=== PATIENT | male | born 1970 | race Caucasian/White ===

== ENCOUNTER 2019-12-25 07:32 | Day surgery (SDC) | payer BC ==
--- NOTE | 2019-12-23 13:13 | HP ---
DATE OF SURGERY: 12/25/2019 ANTICIPATED PROCEDURE: Lesion left lower back. HISTORY OF PRESENT ILLNESS: The patient has enlarging painful subcutaneous back lesion. PAST MEDICAL HISTORY: ALLERGIES: PENICILLIN. MEDICATIONS: Claritin, Singulair, Simvastatin. PAST SURGICAL HISTORY: Left knee. SOCIAL HISTORY: Positive tobacco. Negative ETOH. FAMILY HISTORY: Negative. REVIEW OF SYSTEMS: Allergies, hypertension. PHYSICAL EXAMINATION: VITAL SIGNS: Normal. CHEST: Clear. COR: Regular. IMPRESSION: Mass left subcutaneous 3 x 5 cm. PLAN: Excision.
[~2019-12-25 07:32] MED LIST: Lactated Ringers 1,000 ML IV ONE; XYLOCAINE 1% HCL 20 ML MDV ONE
[2019-12-25] MEDS ORDERED: Lactated Ringers 1,000 ML IV SCH (08:00)
[2019-12-25] MEDS ORDERED: DIPRIVAN 200 MG/20 ML IV ONE (09:20)
[2019-12-25] MEDS ORDERED: SUBLIMAZE 100 MCG/2 ML ONE (09:20)
[2019-12-25] MEDS ORDERED: Versed 2 MG/2 ML Injection ONE (09:20)
[2019-12-25] MEDS ORDERED: CLINDAMYCIN-D5W 900 MG/50 ML*** 900 MG/50 ML BAG IV ONE (09:22)
[2019-12-25 11:06] VITALS: BP 138/82; PULSE 58; O2SAT 99
--- NOTE | 2019-12-26 08:46 | OP ---
SURGERY DATE/TIME: 12/25/2019 0920 PREOPERATIVE DIAGNOSIS: A 6 cm posterior lumbar back mass. POSTOPERATIVE DIAGNOSIS: A 6 cm posterior lumbar back mass. PROCEDURE: Excision of a deep lipoma 6 cm with closure. SURGEON: Carlos Enrique Duffy M.D. ANESTHESIA: MAC. COMPLICATIONS: None. CONDITION: Stable. INDICATION: A patient with above stated condition. DESCRIPTION OF PROCEDURE: Taken to surgery. Right lateral decubitus position. MAC sedation. Slight curvilinear incision along the skin lines. The lesion was deep. It was 6 cm. It was taken out completely. It was closed with 3-0 Vicryl, 4-0 Vicryl and Steri-Strips. The patient tolerated the procedure satisfactorily.
== END 2019-12-25 11:15 | disposition home or self-care (01) ==
LOC: SDC 07:32
PROVIDERS: ATTEND Surgery
DX: D17.1 Benign lipomatous neoplasm of skin and subcutaneous tissue of trunk (principal)
CPT/HCPCS: J2250; J2704; J3010

== ENCOUNTER 2021-09-19 10:43 | Day surgery (SDC) | payer BC ==
[2021-09-19] MEDS ORDERED: Levofloxacin 500MG/100ML D5W 500 MG/100 ML BAG IV SCH (13:15)
[2021-09-19] MEDS ORDERED: CLINDAMYCIN-D5W 900 MG/50 ML*** 900 MG/50 ML BAG IV SCH (13:30)
[2021-09-19] MEDS ORDERED: Lactated Ringers 1,000 ML IV SCH (13:30)
[2021-09-19 14:15] LABS: Hematocrit 42.8 % (42-50); Hemoglobin 13.6 gm/dl (12.5-18.0); Mean Cell Volume 89.2 fl (78-100); Mean Corpuscular Hemoglobin 28.3 pg (26-32); Mean Corpuscular Hgb Concent. 31.8 g/dl (32-36); Mean Platelet Volume 9.4 fl (7.5-11.0); Platelet Count 264 K/mm3 (150-450); Red Cell Distribution Width 14.7 % (11.5-14.0); White Blood Count 6.8 K/mm3 (4.0-10.5)
[2021-09-19 14:22] LABS: ALBUMIN 4.1 g/dL (3.5-5.0); ALKALINE PHOSPHATASE 64 U/L (38-126); ANION GAP 11.3 MEQ/L (5-15); BLOOD UREA NITROGEN 8 mg/dL (9-20); CHLORIDE 102 mmol/L (98-107); Calcium 9.1 mg/dL (8.4-10.2); Carbon Dioxide 27 mmol/L (22-30); Creatinine 1 0.67 mg/dL (0.66-1.25); EST GLOMERULAR FILTRATION RATE > 60.0 ML/MIN; Glucose 96 mg/dL (74-106); Potassium 3.9 mmol/L (3.5-5.1); SGOT/AST 19 U/L (17-59); SGPT/ALT 19 U/L (0-50); SODIUM 136 mmol/L (137-145); Total Protein 6.6 g/dL (6.3-8.2)
[2021-09-19] MEDS ORDERED: Versed 2 MG/2 ML Injection ONE (14:39)
[2021-09-19] MEDS ORDERED: Quelicin Fliptop 200 MG/10 ML ONE (14:39)
[2021-09-19] MEDS ORDERED: DIPRIVAN 200 MG/20 ML IV ONE (14:39)
[2021-09-19] MEDS ORDERED: SUBLIMAZE 250 MCG/5 ML ONE (14:39)
[2021-09-19] MEDS ORDERED: Zemuron 100 MG/10 ML ONE (14:43)
[2021-09-19] MEDS ORDERED: Lactated Ringers 1,000 ML IV ONE (15:11)
[2021-09-19] MEDS ORDERED: EXPAREL 133 MG/10 ML VIAL IJ ONE (16:36)
[2021-09-19] MEDS ORDERED: Ephedrine Sulfate 50 MG/ML ONE (16:58)
[2021-09-19] MEDS ORDERED: Triple Antibiotic Ointment ONE (17:02)
[2021-09-19] MEDS ORDERED: BRIDION 200MG/2ML IV ONE (17:06)
[2021-09-19] MEDS ORDERED: SUBLIMAZE 100 MCG/2 ML ONE (17:39)
[2021-09-19] MEDS ORDERED: Hydromorphone 1 mg/ml Injection ONE (17:39)
[2021-09-19] MEDS ORDERED: Zofran 4 MG/2 ML VIAL ONE (18:46)
[2021-09-19] MEDS ORDERED: Zofran 4 MG/2 ML VIAL IV STA (18:49)
[2021-09-19 19:28] VITALS: BP 129/88; PULSE 79; O2SAT 97
--- NOTE | 2021-09-29 10:03 | OP ---
PROCEDURE DATE/TIME: 09/19/2021 1613 PREOPERATIVE DIAGNOSIS: Thrombosed external hemorrhoids and severe hemorrhoidal disease. POSTOPERATIVE DIAGNOSIS: Thrombosed external hemorrhoids and severe hemorrhoidal disease. PROCEDURES: 1) Rectal exam under anesthesia. 2) Excision thrombosed external hemorrhoids. PROCEDURE PERFORMED BY: Claudia Duffy M.D. COMPLICATIONS: None. ESTIMATED BLOOD LOSS: Minimal. ANESTHESIA: General. SPECIMEN: Hemorrhoidal tissue. HISTORY: This is a gentleman who presented acutely in my office with a thrombosed external hemorrhoid causing him significant pain and discomfort. Risks, benefits, alternatives regarding operative resection were discussed with him in detail as well as conservative measures. He has elected for surgery. He would like to undergo the procedure today. A full H&P was completed. He was also re-evaluated in the preoperative area. DESCRIPTION OF PROCEDURE: He was then taken back to the operative suite. Anesthesia induced. Prepped and draped in the usual sterile fashion in lithotomy position. A complete time out performed. I first did a rectal inspection and then a digital exam. The patient has obvious severe hemorrhoidal disease. He has multiple enlarged hemorrhoid columns most specifically both posterior columns as well as a left anterior column and just slightly anterior column also has an acutely thrombosed hemorrhoid. At this time, we then did a digital inspection and placed our Hill retractor. The patient does have some internal hemorrhoidal disease as well this is not as severe as his external disease but overall his hemorrhoidal disease also in that area is quite significant. There are no other thrombosed hemorrhoids. There are no masses or other findings of concern. We then turned our attention to the thrombosed hemorrhoidal site for our excision. The perianal skin was then grasped, incised and we carefully dissected free the hemorrhoidal vasculature off of the underlying tissue taking great care to preserve the muscle as we dissected free the hemorrhoids. We then were able to place a clamp excise the remainder of the hemorrhoid including the entire fundal portion and then sutured this with a 3-0 chromic suture and then a 4-0 chromic running suture in the perianal skin to allow this to lay as flat as possible. There is no narrowing of the anal canal and this is nice and hemostatic. The entire external hemorrhoid at this site was removed sparing the skin appropriately. The patient had tolerated this procedure well. There are no immediate complications. I did discuss with him preoperatively the importance of bowel regimen and he understands. I have also discussed the findings as well as this with his family. He has been given a prescription for pain medication and for anxiety as well as a bowel regimen and he will be following up with me closely as well in office. He understands all of his discharge instructions.
== END 2021-09-19 19:45 | disposition home or self-care (01) ==
LOC: SDC 10:43
PROVIDERS: ATTEND Surgery
DX: K64.5 Perianal venous thrombosis (principal); Z79.899 Other long term (current) drug therapy
CPT/HCPCS: 36415; 80053; 85027; 88304; J0330; J1170; J1956; J2250; J2405; J2704; J3010; A9270-GY

== ENCOUNTER 2022-11-10 06:33 | Day surgery (SDC) | payer BC ==
[2022-11-10] MEDS ORDERED: Lactated Ringers 1,000 ML IV SCH (07:00)
[2022-11-10] MEDS ORDERED: Xylocaine-Mpf 2% 5 Ml Vial ONE (07:54)
[2022-11-10] MEDS ORDERED: DIPRIVAN 200 MG/20 ML IV ONE ×2 (07:55→08:06)
--- NOTE | 2022-11-10 08:26 | OP ---
SURGERY DATE/TIME: 11/10/2022 0800 PREOPERATIVE DIAGNOSIS: Screening exam. POSTOPERATIVE DIAGNOSIS: Mild sigmoid diverticulosis otherwise normal colon. PROCEDURE: Colonoscopy. SURGEON: Dr. Bryant. ANESTHESIA: MAC. Medications given by anesthesia department. HISTORY: The patient is a 52-year-old white male presents now for screening colonoscopy. The patient was appraised of the risks of the procedure including the risk of perforation, phlebitis, untoward reaction to medication, bleeding and missed lesions. The patient verbalized his understanding and desired to have the procedure performed. DESCRIPTION OF PROCEDURE: The patient was given the medications by the anesthesia department. He had continuous pulse oximetry, ECG monitoring and intermittent blood pressure monitoring during the examination. He was placed in the left lateral decubitus position. Digital rectal examination was performed and revealed normal anal sphincter tone, no masses and normal prostate. The flexible Olympus pediatric colonoscope was used to intubate the rectum. A view of the colon was developed sequentially to the cecum. Upon insertion and withdrawal, including a retroflex view in the rectum was noted to be mild sigmoid diverticulosis otherwise no other mucosal lesions were encountered. The scope was removed from the patient who tolerated the procedure well and was sent back to OP recovery in good condition. The prep was noted to be fair to good.
[2022-11-10 08:53] VITALS: BP 145/88; PULSE 65; O2SAT 98
== END 2022-11-10 09:05 | disposition home or self-care (01) ==
LOC: SDC 06:33
PROVIDERS: ATTEND Family Medicine
DX: Z12.11 Encounter for screening for malignant neoplasm of colon (principal); K57.30 Diverticulosis of large intestine without perforation or abscess without bleeding
CPT/HCPCS: J2704

== ENCOUNTER 2024-09-14 05:28 | Emergency (ER) | payer BC ==
[2024-09-14] MEDS ORDERED: NORCO 10-325 MG PO ONE (05:29)
[2024-09-14 05:45] VITALS: TEMP 97
--- NOTE | 2024-09-14 05:47 | ERPHSYRPT ---
- History of Present Illness Historian: patient, family Exam Limitations: no limitations Patient Subjective Stated Complaint: pt states that he began to have stomach pain before bed tonight Triage Nursing Assessment: pt ambulated into the er; pt is axo x4; c/o abd pain; pt states 10/10 pain to epigastric region; abd round, large, tender; hyperactive bowel sounds in all quads; mucus membranes pink and moist; pt denies N/V/D; skin PDW; no respiratory distress present; hypertensive Timing/Duration: today Activities at Onset: none Quality: cramping, sharpness Abdominal Pain Onset Location: generalized abdomen Pain Radiation: epigastric, periumbilical Severity of Pain-Max: moderate Severity of Pain-Current: moderate Modifying Factors: Improves With: nothing Associated Symptoms: denies symptoms Previous symptoms: no prior history Hx Tetanus, Diphtheria Vaccination/Date Given: No Hx Influenza Vaccination/Date Given: No Hx Pneumococcal Vaccination/Date Given: No Immunizations Up to Date: No <OSMAN FRAZIER - Last Filed: 09/14/24 07:00> <CARTER GENTILE - Last Filed: 09/14/24 07:42> - History of Present Illness Time Seen by Provider: 09/14/24 05:45 Physician History: Pt had onset of general abdominal pain at around midnight - none like this ever before. No hx of trauma or abdominal surgeries. No hx ht dx and has no CP or SObreath with this. No N.v or diarrhea. Discussed with pt and available family risks and benefits of testing/Tx including CBC, CMP, EKG, Trop, Lactate, UA, Amylase, Lipase, CT abdomen , pain med, and they wish to proceed so these are ordered. family is present in ER as independent source for Hx. Results discussed with pt and available family. Pt now reports hx of diverticulitis and some milder symptoms LLQ earlier last week. Pt and add that he often has had blood found in UA in past and this may be a chronic finding - I advised them still to f/u PMDs for further w/u of this even if unrelated to his pain today. (OSMAN FRAZIER) Allergies/Adverse Reactions: mushroom Allergy (Severe, Verified 09/14/24 05:33) Anaphylactic Reaction Penicillins Allergy (Unknown, Verified 09/14/24 05:33) Hives Home Medications: Loratadine 10 mg [Claritin 10 mg] 10 mg PO DAILY 12/25/19 [History] Losartan Potassium [Cozaar] 25 mg PO DAILY 12/25/19 [History] Montelukast Sodium 10 mg [Singulair 10 MG] 10 mg PO DAILY 12/25/19 [History] Valacyclovir HCl [Valtrex] 500 mg PO DAILY 12/25/19 [History] Pravastatin Sodium 20 mg PO DAILY 10/20/22 [History] Travel Risk - International Travel Have you traveled outside of the country in past 3 weeks: No - Emerging Infectious Disease Are you exhibiting symptoms associated with any current EIDs: Yes Symptoms: Abdominal Pain <OSMAN FRAZIER - Last Filed: 09/14/24 07:00> - Review of Systems Constitutional: No Fever, No Chills Eyes: No Symptoms Ears, Nose, & Throat: No Symptoms Respiratory: No Cough, No Dyspnea Cardiac: No Chest Pain, No Edema, No Syncope Abdominal/Gastrointestinal: Abdominal Pain, No Nausea, No Vomiting, No Diarrhea Genitourinary Symptoms: No Dysuria Musculoskeletal: No Back Pain, No Neck Pain, No Fall, No Injury Skin: No Symptoms, No Rash Neurological: No Symptoms, No Dizziness, No Focal Weakness, No Sensory Changes Psychological: No Symptoms Endocrine: No Symptoms Hematologic/Lymphatic: No Symptoms Immunological/Allergic: No Symptoms All Other Systems: Reviewed and Negative <OSMAN FRAZIER - Last Filed: 09/14/24 07:00> - Past Medical History Pertinent Past Medical History: Yes Neurological History: No Pertinent History ENT History: No Pertinent History Cardiac History: High Cholesterol, Hypertension Respiratory History: No Pertinent History Endocrine Medical History: No Pertinent History Musculoskeletal History: Other GI Medical History: GERD History: No Pertinent History Psycho-Social History: No Pertinent History Male Reproductive Disorders: No Pertinent History Other Medical History: 2010 RIGHT KNEE ARTHROSCOPY FOR MENISCUS REPAIR. 1993 LEFT KNEE ARHTROSCOPY FOR DEBRIDEMENT - Past Surgical History Past Surgical History: Yes Neuro Surgical History: No Pertinent History Cardiac: No Pertinent History Respiratory: No Pertinent History Gastrointestinal: Hemorrhoidectomy Genitourinary: No Pertinent History Musculoskeletal: Other Male Surgical History: No Pertinent History Other Surgical History: left knee surgery 2010. right knee scope 30 years ago - Social History Smoking Status: Never smoker Exposure to second hand smoke: No Drug Use: none - Social Determinants of Health Will the patient participate in the screening: Yes Do you worry about a steady place to live?: No Do you have any problems with any of the following?: No known problems In the past 12 months,have you had to go without utilities?: No Transportation Issues: No Has anyone in your support network made you feel unsafe?: No Have you or anyone in your house had to go without enough: No <OSMAN FRAZIER - Antonio Filed: 09/14/24 07:00> - Physical Exam General Appearance: mild distress, alert Eye Exam: PERRL/EOMI, eyes nml inspection Ears, Nose, Throat Exam: normal ENT inspection, pharynx normal, moist mucous membranes Neck Exam: normal inspection, non-tender, supple, full range of motion Respiratory Exam: normal breath sounds, lungs clear, airway intact, No respiratory distress Cardiovascular Exam: regular rate/rhythm, normal heart sounds Gastrointestinal/Abdomen Exam: soft, tenderness, guarding, rebound, No mass, No pulsatile mass Rectal Exam: deferred Back Exam: normal inspection, normal range of motion, No CVA tenderness, No vertebral tenderness Extremity Exam: normal inspection, normal range of motion, pelvis stable Neurologic Exam: alert, oriented x 3, cooperative, normal mood/affect, nml cerebellar function, sensation nml, No motor deficits Skin Exam: normal color, warm, dry SpO2 Interpretation: normal SpO2: 99 O2 Delivery: Room Air <OSMAN FRAZIER Filed: 09/14/24 07:00> - Nursing Vital Signs Nursing Vital Signs: Initial Vital Signs Temperature 97.0 F 09/14/24 05:36 Pulse Rate 76 09/14/24 05:36 Respiratory Rate 18 09/14/24 05:36 Blood Pressure 158/111 09/14/24 05:36 O2 Sat by Pulse Oximetry 99 09/14/24 05:36 Pain Scale Pain Intensity 3 - Course Nursing assessment & vital signs reviewed: Yes EKG Interpreted by Me: Sinus Rhythm, NORMAL AXIS, LAFB, NORMAL INTERVALS, Non- specific ST Changes, Other (incomplete RBBB) <OSMAN FRAZIER Filed: 09/14/24 07:00> - CT Exams Abdomen/Pelvis CT Interpretation: Tele-radiologist Report <CARTER GENTILE Filed: 09/14/24 07:42> Ordered Tests: Active Orders 24 hr Category Date Time Status EKG-ER Only STAT Care 09/14/24 05:57 Active IV Insertion STAT Care 09/14/24 05:57 Active ABDOMEN AND PELVIS W/0 CONTRAS [CT] Stat Exams 09/14/24 05:57 Completed AMYLASE Stat Lab 09/14/24 05:40 Completed CBC W DIFF Stat Lab 09/14/24 05:40 Completed CMP Stat Lab 09/14/24 05:40 Completed CULTURE,URINE Stat Lab 09/14/24 05:40 Received LIPASE Stat Lab 09/14/24 05:40 Completed Lactic Acid Stat Lab 09/14/24 05:57 Completed TROPONIN Q4H Lab 09/14/24 05:40 Completed TROPONIN Q4H Lab 09/14/24 10:00 Ordered TROPONIN Q4H Lab 09/14/24 14:00 Ordered UA W/RFX UR CULTURE Stat Lab 09/14/24 05:40 Completed Medication Summary Generic Name Dose Route Start Last Admin Trade Name Freq PRN Reason Stop Dose Admin Levofloxacin/Dextrose 750 mg in 150 mls @ 100 mls/hr 09/14/24 06:35 09/14/24 06:41 Levofloxacin 750mg/150ml D5w IV 09/14/24 08:04 100 mls/hr STAT STA 100 mls/hr Administration Discontinued Medications Generic Name Dose Route Start Last Admin Trade Name Freq PRN Reason Stop Dose Admin Famotidine 20 mg 09/14/24 05:59 09/14/24 06:02 Famotidine 20 Mg/1 Vial IV 09/14/24 06:00 20 mg STAT ONE Administration Famotidine Confirm 09/14/24 06:00 Famotidine 20 Mg/1 Vial Administered 09/14/24 06:01 Dose 20 mg IV .STK-MED ONE Metronidazole 500 mg in 100 mls @ 200 mls/hr 09/14/24 06:36 09/14/24 06:42 Flagyl 500 Mg Ivpb IV 09/14/24 07:05 200 mls/hr STAT STA 200 mls/hr Administration Metronidazole Confirm 09/14/24 06:39 Flagyl 500 Mg Ivpb Administered 09/14/24 06:40 Dose 500 mg in 100 mls @ ud IV .STK-MED ONE Levofloxacin/Dextrose Confirm 09/14/24 06:40 Levofloxacin 750mg/150ml D5w Administered 09/14/24 06:41 Dose 750 mg in 150 mls @ ud IV .STK-MED ONE Morphine Sulfate 6 mg 09/14/24 05:57 09/14/24 06:02 Morphine Sulfate 10 Mg/Ml Injection IV 09/14/24 05:58 6 mg STAT ONE Administration Morphine Sulfate Confirm 09/14/24 06:01 Morphine Sulfate 10 Mg/Ml Injection Administered 09/14/24 06:02 Dose 10 mg .ROUTE .STK-MED ONE Ondansetron HCl 4 mg 09/14/24 05:57 09/14/24 06:02 Ondansetron Hcl 4 Mg/2 Ml Vial IV 09/14/24 05:58 4 mg STAT ONE Administration Ondansetron HCl Confirm 09/14/24 06:00 Ondansetron Hcl 4 Mg/2 Ml Vial Administered 09/14/24 06:01 Dose 4 mg .ROUTE .STK-MED ONE Lab/Rad Data: Laboratory Result Diagrams 09/14/24 05:40 09/14/24 05:40 Laboratory Results 09/14/24 09/14/24 09/14/24 Range/Units 05:57 05:40 05:40 WBC (4.23-9.07) x10^3/uL RBC (4.63-6.08) x10^6/uL Hgb (13.7-17.5) g/dL Hct (40.1-51.0) % MCV (79.0-92.2) fL MCH (25.7-32.2) pg MCHC (32.3-36.5) g/dL RDW (11.6-14.4) % Plt Count (163-337) x10^3/uL MPV (9.4-12.4) fL Gran % (34.0-67.9) % Immature Gran % (Auto) (0.001-0.429) % Nucleat RBC Rel Count (0.00-0.2) % Eos # (Auto) (0.04-0.54) x10^3/uL Immature Gran # (Auto) (0.001-0.031) x10^3u/L Absolute Lymphs (auto) (1.32-3.57) x10^3/uL Absolute Monos (auto) (0.30-0.82) x10^3/uL Absolute Nucleated RBC (0.00-0.012) x10^3u/L Lymphocytes % (21.8-53.1) % Monocytes % (5.3-12.2) % Eosinophils % (0.8-7.0) % Basophils % (0.2-1.2) % Absolute Granulocytes (1.78-5.38) x10^3/uL Basophils # (0.01-0.08) x10^3/uL Sodium 139 (135-145) mmol/L Potassium 3.9 (3.5-5.1) mmol/L Chloride 103 (98-107) mmol/L Carbon Dioxide 24 (22-30) mmol/L Anion Gap 15.1 H (5-15) MEQ/L BUN 17 (9-20) mg/dL Creatinine 0.82 (0.66-1.25) mg/dL Estimated GFR 105.7 ML/MIN Glucose 149 H (74-106) mg/dL Lactic Acid 1.7 (0.4-2.0) Calcium 10.4 H (8.4-10.2) mg/dL Total Bilirubin 0.50 (0.2-1.3) mg/dL AST 28 (17-59) U/L ALT 28 (0-50) U/L Alkaline Phosphatase 89 (38-126) U/L Troponin I < 0.012 (0.000-0.033) ng/mL Serum Total Protein 7.2 (6.3-8.2) g/dL Albumin 4.5 (3.5-5.0) g/dL Amylase 40 (30-110) U/L Lipase 47 (23-300) U/L Urine Color (Yellow) Urine Appearance (Clear) Urine pH (4.6-8.0) Ur Specific [place] (1.005-1.030) Urine Protein (Negative) Urine Glucose (UA) (Negative) mg/dL Urine Ketones (Negative) Urine Blood (Negative) Urine Nitrite (Negative) Urine Bilirubin (Negative) Urine Urobilinogen (0.2) mg/dL Ur Leukocyte Esterase (Negative) U Hyaline Cast (Auto) (0-2) /LPF Urine Microscopic RBC (0-5) /HPF Urine Microscopic WBC (0-5) /HPF Ur Epithelial Cells (None Seen) /HPF Urine Bacteria (None Seen) /HPF Urine Culture Reflexed (NO) 09/14/24 09/14/24 Range/Units 05:40 05:40 WBC 8.2 (4.23-9.07) x10^3/uL RBC 5.84 (4.63-6.08) x10^6/uL Hgb 16.1 (13.7-17.5) g/dL Hct 48.6 (40.1-51.0) % MCV 83.2 (79.0-92.2) fL MCH 27.6 (25.7-32.2) pg MCHC 33.1 (32.3-36.5) g/dL RDW 13.3 (11.6-14.4) % Plt Count 351 H (163-337) x10^3/uL MPV 9.7 (9.4-12.4) fL Gran % 67.3 (34.0-67.9) % Immature Gran % (Auto) 0.5 H (0.001-0.429) % Nucleat RBC Rel Count 0.0 (0.00-0.2) % Eos # (Auto) 0.13 (0.04-0.54) x10^3/uL Immature Gran # (Auto) 0.04 H (0.001-0.031) x10^3u/L Absolute Lymphs (auto) 1.61 (1.32-3.57) x10^3/uL Absolute Monos (auto) 0.85 H (0.30-0.82) x10^3/uL Absolute Nucleated RBC 0.00 (0.00-0.012) x10^3u/L Lymphocytes % 19.6 L (21.8-53.1) % Monocytes % 10.3 (5.3-12.2) % Eosinophils % 1.6 (0.8-7.0) % Basophils % 0.7 (0.2-1.2) % Absolute Granulocytes 5.53 H (1.78-5.38) x10^3/uL Basophils # 0.06 (0.01-0.08) x10^3/uL Sodium (135-145) mmol/L Potassium (3.5-5.1) mmol/L Chloride (98-107) mmol/L Carbon Dioxide (22-30) mmol/L Anion Gap (5-15) MEQ/L BUN (9-20) mg/dL Creatinine (0.66-1.25) mg/dL Estimated GFR ML/MIN Glucose (74-106) mg/dL Lactic Acid (0.4-2.0) Calcium (8.4-10.2) mg/dL Total Bilirubin (0.2-1.3) mg/dL AST (17-59) U/L ALT (0-50) U/L Alkaline Phosphatase (38-126) U/L Troponin I (0.000-0.033) ng/mL Serum Total Protein (6.3-8.2) g/dL Albumin (3.5-5.0) g/dL Amylase (30-110) U/L Lipase (23-300) U/L Urine Color Yellow (Yellow) Urine Appearance Clear (Clear) Urine pH 7.0 (4.6-8.0) Ur Specific [place] 1.020 (1.005-1.030) Urine Protein Trace A (Negative) Urine Glucose (UA) Negative (Negative) mg/dL Urine Ketones Negative (Negative) Urine Blood Small A (Negative) Urine Nitrite Negative (Negative) Urine Bilirubin Negative (Negative) Urine Urobilinogen 1.0 A (0.2) mg/dL Ur Leukocyte Esterase Negative (Negative) U Hyaline Cast (Auto) NONE SEEN (0-2) /LPF Urine Microscopic RBC 6-10 A (0-5) /HPF Urine Microscopic WBC 0-2 (0-5) /HPF Ur Epithelial Cells None Seen (None Seen) /HPF Urine Bacteria None Seen (None Seen) /HPF Urine Culture Reflexed YES (NO) CT/ABDOMEN AND PELVIS W/0 CONTRAS CLINICAL HISTORY: abdominal pain COMPARISON: No TECHNIQUE: Contiguous axial images were obtained from the level of the diaphragm to the pubic symphysis without intravenous or oral contrast. Coronal and sagittal reconstructions were likewise performed and indicated to increase the sensitivity for detecting clinically relevant pathology. CT scan was performed according to ALARA (as low as reasonable achievable). FINDINGS: The visualized lung bases are clear. Evaluation of the abdominal and pelvic visceral organs is limited without intravenous contrast. The unenhanced liver, spleen, pancreas, and adrenal glands are grossly unremarkable. The gallbladder is present. The kidneys are normal in size and attenuation without obvious calcification. There is no hydronephrosis. Mild bilateral perinephric stranding. The ureters are normal in caliber. No adenopathy or fluid collections are seen. No evidence of focal or diffuse bowel wall thickening or evidence of bowel obstruction is seen. Multiple colonic diverticulae. Mild segmental thickening of sigmoid colon with adjacent stranding noted, possibility of mild/early diverticulitis to be considered. Suggested clinical correlation and follow up imaging as clinically appropriate. The appendix is visualized in the right lower quadrant and appears within normal limits. The aorta is normal in caliber. The urinary bladder is normal in contour. Pelvic viscera are grossly unremarkable. No aggressive appearing osseous lesions are identified. IMPRESSION: 1. Mild bilateral perinephric stranding, likely suggestive of acute kidney injury. Suggest- Serum creatinine correlation. 2. Multiple sigmoid colon diverticulae. Mild segmental thickening of sigmoid colon with adjacent stranding noted, possibility of mild/early diverticulitis to be considered. Suggested clinical correlation and follow up imaging as clinically appropriate. (CARTER GENTILE) - Progress Progress: improved, re-examined Counseled pt/family regarding: lab results, diagnosis, need for follow-up, rad results <OSMAN FRAZIER - Last Filed: 09/14/24 07:00> - Progress Progress: pain not gone completely <CARTER GENTILE - Last Filed: 09/14/24 07:42> - Progress Progress Note: 09/14/24 05:[address] Gentile at change of shift after introduction and discussion of pending imaging, findings, and sympto hx for final interpretation and disposition. 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 Discussed risks/benefits of antibiotics presumptively with Hx diverticulitis and findings and pt and family wish to proceed with levoquin and flagyl IV. 09/14/24 06:01 Discussed limitations of testing performed with pt and family and that additional pathology could still be evolving undetected with need for further evaluation/follow-up. 09/14/24 06:26 09/14/24 06:40 (OSMAN FRAZIER) Medical Desision Making - Independent Historian Additional History obtained from: Spouse - Discussion of managment Reviewed:: Test results, Need for additional workup Agreed on:: Treatment plan, need for follow-up - Diagnostic Testing Diagnostic test were ordered, analyzed, and reviewed by me: Yes Radiological Interpretation: Teleradiologist Report - Risk of complications The pt has a mod risk of morbidity or mortality based on: Need for prescription drug management The pt has a high risk of morbidity or mortality based on: Decision regarding hospitilization or escalation of hosp level of care <OSMAN FRAZIER - Last Filed: 09/14/24 07:00> - Departure Critical Care Time: No <OSMAN FRAZIER - Last Filed: 09/14/24 07:00> - Departure Departure Disposition: Home <CARTER GENTILE - Last Filed: 09/14/24 07:42> - Departure Clinical Impression: Diverticulitis large intestine w/o perforation or abscess w/o bleeding Hypertension Qualifiers: Hypertension type: primary hypertension Qualified Code(s): I10 - Essential (primary) hypertension Condition: Good Referrals: NIKHIL LIAO NP [Primary Care Provider] - Follow up/PCP as directed Instructions: Severe Abdominal Pain, Adult (DC), Blood in Urine (Hematuria), Adult ED, High-fiber diet, Diverticulitis - Discharge instructions, Diverticulitis Additional Instructions: followup your blood pressure with your Dr. Prescriptions: Metronidazole 500 mg [Flagyl 500 MG] 500 mg PO TID #21 tablet
[2024-09-14] MEDS ORDERED: Pepcid 20 MG VIAL IV ONE (06:00)
[2024-09-14] MEDS ORDERED: Zofran 4 MG/2 ML VIAL ONE (06:00)
[2024-09-14] MEDS ORDERED: MORPHINE SULFATE 10 MG/ML ONE (06:01)
[2024-09-14] MEDS: Pepcid 20 MG VIAL IV ONE (06:02)
[2024-09-14] MEDS: MORPHINE SULFATE 10 MG/ML IV ONE (06:02)
[2024-09-14] MEDS: Zofran 4 MG/2 ML VIAL IV ONE (06:02)
[2024-09-14 06:10] LABS: Absolute Neutrophil Ct (ANC) 5.53 x10^3/uL (1.78-5.38); BASOPHIL % 0.7 % (0.2-1.2); Basophil (Absolute #) 0.06 x10^3/uL (0.01-0.08); Eosinophil % 1.6 % (0.8-7.0); Eosinophil (Absolute #) 0.13 x10^3/uL (0.04-0.54); Hematocrit 48.6 % (40.1-51.0); Hemoglobin 16.1 g/dL (13.7-17.5); IMMATURE GRAN # 0.04 x10^3u/L (0.001-0.031); IMMATURE GRAN % 0.5 % (0.001-0.429); Lymphocyte (Absolute #) 1.61 x10^3/uL (1.32-3.57); Lymphocytes % 19.6 % (21.8-53.1); Mean Cell Volume 83.2 fL (79.0-92.2); Mean Corpuscular Hemoglobin 27.6 pg (25.7-32.2); Mean Corpuscular Hgb Concent. 33.1 g/dL (32.3-36.5); Mean Platelet Volume 9.7 fL (9.4-12.4); Monocyte (Absolute #) 0.85 x10^3/uL (0.30-0.82); Monocytes % 10.3 % (5.3-12.2); Neutrophil % 67.3 % (34.0-67.9); Platelet Count 351 x10^3/uL (163-337); Red Blood Count 5.84 x10^6/uL (4.63-6.08); Red Cell Distribution Width 13.3 % (11.6-14.4); White Blood Count 8.2 x10^3/uL (4.23-9.07)
[2024-09-14 06:16] LABS: Appearance Clear (Clear); Bacteria None Seen /HPF (None Seen); Bilirubin Negative (Negative); Blood Small (Negative); Epithelial Cells None Seen /HPF (None Seen); Glucose, Urine Negative (Negative); Hyaline Casts NONE SEEN /LPF (0-2); Ketones Negative (Negative); Leukocyte Esterase Negative (Negative); Nitrite Negative (Negative); Protein,Urine Dip Trace (Negative); WBC 0-2 /HPF (0-5)
[2024-09-14 06:23] LABS: ALBUMIN 4.5 g/dL (3.5-5.0); ANION GAP 15.1 MEQ/L (5-15); BILIRUBIN,TOTAL 0.5 mg/dL (0.2-1.3); Calcium 10.4 mg/dL (8.4-10.2); Creatinine 1 0.82 mg/dL (0.66-1.25); EST GLOMERULAR FILTRATION RATE 105.7 ML/MIN; Potassium 3.9 mmol/L (3.5-5.1); Total Protein 7.2 g/dL (6.3-8.2)
[2024-09-14] MEDS ORDERED: FLAGYL 500 MG IVPB 500 MG/100 ML BAG IV ONE (06:39)
[2024-09-14] MEDS ORDERED: LEVOFLOXACIN 750MG/150ML D5W 750 MG/150 ML BAG IV ONE (06:40)
[2024-09-14] MEDS: LEVOFLOXACIN 750MG/150ML D5W 750 MG/150 ML BAG IV STA (06:41)
[2024-09-14] MEDS: FLAGYL 500 MG IVPB 500 MG/100 ML BAG IV STA (06:42)
--- NOTE | 2024-09-14 07:20 | XRAY ---
CLINICAL HISTORY: abdominal pain COMPARISON: No TECHNIQUE: Contiguous axial images were obtained from the level of the diaphragm to the pubic symphysis without intravenous or oral contrast. Coronal and sagittal reconstructions were likewise performed and indicated to increase the sensitivity for detecting clinically relevant pathology. CT scan was performed according to ALARA (as low as reasonable achievable). FINDINGS: The visualized lung bases are clear. Evaluation of the abdominal and pelvic visceral organs is limited without intravenous contrast. The unenhanced liver, spleen, pancreas, and adrenal glands are grossly unremarkable. The gallbladder is present. The kidneys are normal in size and attenuation without obvious calcification. There is no hydronephrosis. Mild bilateral perinephric stranding. The ureters are normal in caliber. No adenopathy or fluid collections are seen. No evidence of focal or diffuse bowel wall thickening or evidence of bowel obstruction is seen. Multiple colonic diverticulae. Mild segmental thickening of sigmoid colon with adjacent stranding noted, possibility of mild/early diverticulitis to be considered. Suggested clinical correlation and follow up imaging as clinically appropriate. The appendix is visualized in the right lower quadrant and appears within normal limits. The aorta is normal in caliber. The urinary bladder is normal in contour. Pelvic viscera are grossly unremarkable. No aggressive appearing osseous lesions are identified. IMPRESSION: 1. Mild bilateral perinephric stranding, likely suggestive of acute kidney injury. Suggest- Serum creatinine correlation. 2. Multiple sigmoid colon diverticulae. Mild segmental thickening of sigmoid colon with adjacent stranding noted, possibility of mild/early diverticulitis to be considered. Suggested clinical correlation and follow up imaging as clinically appropriate. Electronically Signed by: Fortunato Barkley MD. (09/14/2024 07:15:50 EST)
[2024-09-14] MEDS ORDERED: NORCO 5/325 MG PO PRN (07:59)
[2024-09-14] MEDS ORDERED: SUBLIMAZE 100 MCG/2 ML ONE (08:06)
[2024-09-14] MEDS: SUBLIMAZE 100 MCG/2 ML IV ONE (08:07)
[2024-09-14] MEDS ORDERED: NORCO 10-325 MG ONE (08:13)
[2024-09-14] MEDS: NORCO 10-325 MG PO PRN (08:16)
[2024-09-14 08:30] VITALS: BP 155/104; PULSE 66; RESP 16; O2SAT 97
== END 2024-09-14 08:51 | disposition home or self-care (01) ==
LOC: ED 05:28
DX: K57.92 Diverticulitis of intestine, part unspecified, without perforation or abscess without bleeding (principal); R10.9 Unspecified abdominal pain; I10 Essential (primary) hypertension
CPT/HCPCS: 36415; 74176; 80053; 81001; 82150; 83605; 83690; 84484; 85025; 87086; 93005; 96365; 96374; 96375; 99284; 99285; J1956; J2270; J2405; J3010; A9270-GY